=== PATIENT | female | born 1990 | race Caucasian/White ===

== ENCOUNTER 2017-11-18 10:51 | Emergency (ER) | payer OTHER ==
[~2017-11-18] VITALS: Ht 162.6 cm; Wt 68.0 kg
[2017-11-18] MEDS ORDERED: IBUPROFEN (11:05)
--- NOTE | 2017-11-18 11:41 | NUR ---
Patient discharged to home in stable conditon. Written and verbal after care instructions given to patient. Patient verbalizes understanding of instructions.
== END 2017-11-18 11:42 | disposition home or self-care (01) ==
LOC: ER 10:51
DX: L04.0 Acute lymphadenitis of face, head and neck (principal)
CPT/HCPCS: A4663